=== PATIENT | male | born 1970 ===

== ENCOUNTER 2017-03-12 21:31 | Emergency (ER) | payer SELFPAY ==
[2017-03-12] MEDS ORDERED: IOPAMIDOL 300 (61%) 100 ML VIAL IV ONE (21:32)
[2017-03-13] MEDS ORDERED: ONDANSETRON 4 MG/2ML 2 ML VIAL ONE (01:04)
[2017-03-13] MEDS ORDERED: NALBUPHINE HCL 10 MG/ML AMP ONE ×2 (01:04→03:50)
[2017-03-13 01:11] LABS: ABSOLUTE NEUTROPHIL COUNT 11.8 K/mm3 (1.8-7.7); BASO % 0.1 % (0.2-1.0); EOS % 0.1 % (0.9-2.9); HEMATOCRIT 37.6 % (32.0-52.0); HEMOGLOBIN 12.5 gm/l (14.0-18.0); IMM NEUT # 0.1 K/mm3 (0-0.2); IMM NEUT% 0.7 % (0-1); LYMPH # 0.8 (1.0-4.8); LYMPH % 5.5 % (15-45); MEAN CELL VOLUME 79.3 fl (80.0-94.0); MEAN CORPUSCULAR HEMOGLOBIN 26.4 pg (27.0-31.0); MEAN CORPUSCULAR HGB CONC 33.2 g/dl (33.0-37.0); MONO # 1.2 (0.0-0.8); MONO % 8.3 % (4-12); NEUT % 85.3 % (43-75); PLATELET COUNT 340 K/mm3 (130-400); RED CELL DISTRIBUTION WIDTH 12.3 % (11.5-14.5)
[2017-03-13 01:26] LABS: ALBUMIN 3.6 gm/dL (3.5-5.7)
[2017-03-13 02:39] LABS: SPECIFIC GRAVITY 1.015 (1.001-1.030); URINE BILIRUBIN NEGATIVE (NEGATIVE); URINE BLOOD NEGATIVE (NEGATIVE); URINE GLUCOSE (UA) 3+ (NEGATIVE); URINE LEUKOCYTE ESTERASE NEGATIVE (NEGATIVE); URINE NITRITE NEGATIVE (NEGATIVE); URINE PROTEIN NEGATIVE (NEGATIVE); URINE UROBILINOGEN NORMAL (0-1 mg/dl)
[2017-03-13 02:40] LABS: URINE APPEARANCE CLEAR; URINE COLOR YELLOW
--- NOTE | 2017-03-13 07:53 | CT ---
Exam Type: ABD/PELVIS W/ CON Date and Time: 03/13/2017 12:53 AM Clinical information: Right-sided back pain since last night. Patient is dizzy and reports cough. Febrile. Comparison: None Technique: Contiguous axial 4 mm images were obtained from the lung bases through the pelvis after the uneventful IV administration of 100 cc of [id number]. Sagittal and coronal reformations with high resolution lung algorithm images were also obtained at this time. CT DI: 9.6 DLP 516.7 FINDINGS: Lung base :No abnormality is identified at the lung bases. Visualized heart:There is no pericardial effusion. LIVER: within normal limits. BILE DUCTS: normal caliber. GALLBLADDER: No calcified gallstones. Normal caliber wall. PANCREAS: within normal limits. SPLEEN: within normal limits. ADRENALS: within normal limits. KIDNEYS: within normal limits. Stomach and small BOWEL: Normal caliber. Large bowel: Air and stool are noted within the large bowel. LYMPH NODES: No enlarged mesenteric lymph nodes. PERITONEUM: no ascites or free air, no fluid collection. VESSELS: within normal limits RETROPERITONEUM: within normal limits. ABDOMINAL WALL: within normal limits. Bladder: Normal BONES: within normal limits. IMPRESSION: No acute inflammatory process is noted within the abdomen or pelvis. Close clinical and radiographic follow-up are recommended. Exam is otherwise normal. Preliminary report was provided by [email or web address] at approximately 0307 hours on 03/13/2017.
--- NOTE | 2017-03-13 09:15 | RAD ---
03/13/2017 9:12 AM CHEST - 2 VIEWS History: Cough, fever Comparison: None Findings: Two views of the chest are obtained. The lungs are clear with out effusion or pneumothorax. The cardiomediastinal silhouette is unremarkable.. The osseous structures are intact.. IMPRESSION: No acute intrathoracic process.
== END 2017-03-13 05:38 | disposition home or self-care (01) ==
LOC: ED 21:31
DX: M54.5 Low back pain (principal); E11.9 Type 2 diabetes mellitus without complications; Z79.84 Long term (current) use of oral hypoglycemic drugs
CPT/HCPCS: 85025; 80053; 81003; 71020; 74177; 87804; 96375; 96376; 99284 ×2; 96374; J2300 ×2; J2405; Q9967